=== PATIENT | female | born 1970 | race Two or more races ===

== ENCOUNTER 2017-01-13 18:18 | Emergency (ER) | payer MEDICAID ==
[~2017-01-13] VITALS: Ht 160 cm; Wt 93.0 kg
[2017-01-13 18:27] VITALS: BP 122/74
== END 2017-01-13 22:36 | disposition home or self-care (01) ==
LOC: ER 18:21
DX: N94.89 Other specified conditions associated with female genital organs and menstrual cycle (principal); L72.3 Sebaceous cyst; F17.210 Nicotine dependence, cigarettes, uncomplicated

== ENCOUNTER 2019-09-01 10:16 | Emergency (ER) | payer MEDICAID ==
[~2019-09-01] VITALS: Ht 157.5 cm; Wt 82.6 kg
[2019-09-01 12:31] VITALS: BP 135/78
== END 2019-09-01 12:39 | disposition home or self-care (01) ==
LOC: ER 10:18
DX: H66.91 Otitis media, unspecified, right ear (principal); F17.210 Nicotine dependence, cigarettes, uncomplicated